=== PATIENT | female | born 1970 | race Caucasian/White ===

== ENCOUNTER 2021-05-12 12:51 | Emergency (ER) | payer SELFPAY ==
[2021-05-12 17:36] VITALS: BP 110/75; PULSE 90; RESP 18; O2SAT 99; BMI 22.9
[2021-05-12 19:59] VITALS: BP 146/87; PULSE 83; RESP 20; TEMP 37.3; O2SAT 100
--- NOTE | 2021-05-12 20:21 | XRR_ITS ---
PROCEDURE INFORMATION: Exam: XR Chest Exam date and time: 05/12/2021 8:21 PM Age: 51 years old Clinical indication: Dyspnea TECHNIQUE: Imaging protocol: XR of the chest. Views: 1 view. COMPARISON: No relevant prior studies available. FINDINGS: Lungs: Unremarkable. No consolidation. Pleural spaces: Unremarkable. No pleural effusion. No pneumothorax. Heart/Mediastinum: Unremarkable. No cardiomegaly. Bones/joints: Unremarkable. XR/XR chest 1V portable [id number] IMPRESSION: No acute findings.
--- NOTE | 2021-05-12 20:21 | ECG_ITS ---
[facility] Test Date: 2021-05-12 Pat Name: Kelly Newell Department: Room: Gender: Female Program Planner: : 1970 Requested By: Lobo Cruz Order Number: [id number] Quynh MD: Destiney Miranda M.D. Measurements Intervals [place] Rate: 66 P: 71 [place]: 152 QRS: 72 QRSD: 76 T: 72 QT: 381 QTc: 399 Interpretive Statements SINUS RHYTHM No previous ECG available for comparison Electronically Signed On 05-12-2021 22:18:32 MARKETING DEVELOPMENT SPECIALIST by Destiney Miranda M.D. [id number]
--- NOTE | 2021-05-12 20:33 | XRR_ITS ---
PROCEDURE INFORMATION: Exam: XR Left Ankle Exam date and time: 05/12/2021 8:33 PM Age: 51 years old Clinical indication: Pain; Ankle; Left; Additional info: Ankle pain TECHNIQUE: Imaging protocol: XR Left ankle. Views: 1 or 2 views. COMPARISON: No relevant prior studies available. FINDINGS: Bones/joints: Normal. Soft tissues: Normal. XR/XR ankle LT 2V [id number] IMPRESSION: No acute findings.
[2021-05-12 20:42] LABS: Basophils % 0.5 %; Eosinophils # 0.1 10^3/uL (0.0-0.8); Eosinophils % 2.2 %; Hematocrit 42.1 % (37.0-47.0); Hemoglobin 13.6 g/dL (11.5-15.3); Lymphocytes # 3.1 10^3/uL (0.8-4.8); Lymphocytes % 48.6 %; Mean Corpuscular HGB Conc 32.3 g/dL (30.0-36.0); Mean Corpuscular Hemoglobin 29.6 pg (28.0-34.0); Mean Corpuscular Volume 91.7 fl (81-99); Mean Platelet Volume 10.8 fL (7.4-10.4); Monocytes # 0.7 10^3/uL (0.2-0.9); Neutrophils # 2.38 10^3/uL (1.8-7.7); Neutrophils % 37.7 %; Nucleated Red Blood Cells % 0 %; Platelet Count 205 10^3/cmm (130-400); Red Blood Count 4.59 10^6/uL (4.1-5.3); Red Cell Distribution Width 12.5 % (12.1-15.1); White Blood Count 6.3 10^3/uL (4.0-10.0)
--- NOTE | 2021-05-12 20:55 | ED_ITS ---
HPI - General Adult General: Chief complaint: Extremity Problem,Nontraumatic Stated complaint: SORE LEG/ COUGH/ FEVER Time Seen by Provider: 05/12/21 20:01 History of Present Illness: HPI narrative: Patient is a 51-year-old female with no significant past medical history presents emergency room with complaints of left lower extremity swelling and shortness of breath x1 week. Patient tells me that she noticed her left ankle lower leg appears to be mildly swollen since a week ago. Patient was asleep when she woke up with this pain. Since then, patient has said that the pain is intermittent has not stopped. Patient also reports short onset of shortness of breath around the same time. Denies any calf swelling or thigh swelling. No history of VTE's prior. Patient says that her family numbers work in healthcare and urged her to come to the emergency room for evaluation for blood clots. Patient denies any pleuritic chest pain, recent immobilization, or surgery, OCP use, exertional chest pain or pleuritic chest pain, hemoptysis, nausea/vomiting, diarrhea, melena hematochezia. Onset:1 week ago Duration:1 week Location:home Severity:moderate Review of Systems Narrative: Constitutional: No fever, no chills. HEENT: No vision changes CV: No chest pain, no palpitations PULM: no cough, +dyspnea. GI: No abdominal pain, no N/V/D. : No dysuria MSKEL: No muscle pain, +L leg and ankle pain SKIN: No new rashes, no lesions. NEURO: No headache, no focal weakness. HEME: No visible bruises PSYCH: Normal mood Physical Exam Narrative: EXAM NARRATIVE: Head: Atraumatic Eyes: PERRL, conjunctiva without injection ENT: Mucous membrane moist NECK: Supple, ROM intact LUNGS: LCTAB, no crackles/rhonchi CV: RRR ABDOMEN: Soft, nontender in all quadrants EXTREMITY: Normal ROM, +mild L anterior lateral ankle/distal tib/fib tenderness to palpation, no aris sign, no inner thigh tenderness to palpation b/l, LLE 2+DP/PT pulses, cap refill< 2 secons in the affected extremity, strength and sensation intact in the LLE SKIN: No rash or erythema NEURO: Awake and alert, no focal motor deficits PSYCH: Normal mood and affect Course Vital Signs: Vital signs: Vital Signs Temperature 98.4 F 05/12/21 21:49 Pulse Rate 81 05/12/21 21:49 Respiratory Rate 18 05/12/21 21:49 Blood Pressure 129/88 05/12/21 21:49 Pulse Oximetry 99 05/12/21 21:49 MDM - General Adult MDM Narrative: Medical decision making narrative: 51-year-old female presents emergency room for evaluation of possible DVT with complaints of ankle pain x 1 week. On exam, patient has mild left lateral anterior ankle tenderness to palpation. Neurovascular exam intact in bilateral extremity. Patient also reports mild dyspnea x1 week. Low suspicion for DVT is low at this time. D-dimer is within normal limit. Given negative D-dimer and low suspicion, this is unlikely to be DVT at this time. Plan within normal limit. EKG is nonischemic. X-ray chest did not show any focal findings Doubt ACS/PE or other emergent causes of chest pain. No suspicion for aortic dissection given no widened mediastinum, 2+ upper extremity pulses, or tearing pain. No suspicion for PE given neg dimer AND no pleuritic chest pain, recent immobilization or surgery hemoptysis, or other VTE risk factors. Rx tylenol PRN ankle pain Disposition: Discharge. Patient counseled regarding diagnostic impression, treatment plan. Patient given ED strict return precautions to return for continuation, worsening, or development of new symptoms. Instructed to f/u w/ PCP regarding symptoms today. Patient verbalized understanding. Lab Data: Labs: Lab Results 05/12/21 05/12/21 05/12/21 20:36 20:36 20:36 WBC 6.3 10^3/uL 10^3/ uL (4.0-10.0) RBC 4.59 10^6/uL 10^6 /uL (4.1-5.3) Hgb 13.6 g/dL g/dL (11.5-15.3) Hct 42.1 % % (37.0-47.0) MCV 91.7 fl fl (81-99) MCH 29.6 pg pg (28.0-34.0) MCHC 32.3 g/dL g/dL (30.0-36.0) RDW 12.5 % % (12.1-15.1) Plt Count 205 10^3/cmm 10^3 /cmm (130-400) MPV 10.8 fL H fL (7.4-10.4) Neut % (Auto) 37.7 % % Lymph % (Auto) 48.6 % % Dewitt % (Auto) 11.0 % % Eos % (Auto) 2.2 % % Baso % (Auto) 0.5 % % Neut # (Auto) 2.38 10^3/uL 10^3 /uL (1.8-7.7) Lymph # (Auto) 3.1 10^3/uL 10^3/ uL (0.8-4.8) Dewitt # (Auto) 0.7 10^3/uL 10^3/ uL (0.2-0.9) Eos # (Auto) 0.1 10^3/uL 10^3/ uL (0.0-0.8) Baso # (Auto) 0.0 10^3/uL 10^3/ uL (0.0-0.1) Nucleated RBC % (a uto) 0 % % Nucleated RBCs # 0.0 /100WBC /100W BC D-Dimer 0.33 ug/mIFEU ug/ mIFEU (0-0.59) Sodium 140 mmol/L mmol/L (136-145) Potassium 4.2 mmol/L mmol/L (3.5-5.1) Chloride 105 mmol/L mmol/L (98-107) Carbon Dioxide 26 mmol/L mmol/L (22-29) Anion Gap 13.2 (5-19) BUN 8 mg/dL mg/dL (6-20) Creatinine 0.6 mg/dL mg/dL (0.5-0.9) GFR Calculation 105.4 mL/min mL/m in (90-130) Glucose 84 mg/dL mg/dL (65-115) Calculated Osmolal ity 288 mOsm/kg mOsm/ kg (285-295) Calcium 8.5 mg/dL mg/dL (8.5-10.5) Troponin T Baselin e 05/12/21 20:36 WBC RBC Hgb Hct MCV MCH MCHC RDW Plt Count MPV Neut % (Auto) Lymph % (Auto) Dewitt % (Auto) Eos % (Auto) Baso % (Auto) Neut # (Auto) Lymph # (Auto) Dewitt # (Auto) Eos # (Auto) Baso # (Auto) Nucleated RBC % (a uto) Nucleated RBCs # D-Dimer Sodium Potassium Chloride Carbon Dioxide Anion Gap BUN Creatinine GFR Calculation Glucose Calculated Osmolal ity Calcium Troponin T Baselin e 6 ng/L ng/L (0-10) Imaging Data^: Other Imaging: Radiologist's impression: [facility] [address] [id number] ReportSigned Patient: Kelly Newell AUnit #: [id number]: 1970Acct#:[id number]/Sex: 51 / FADM Date: 05/12/21Loc: ERRoom/Bed:Attending Dr: Ordering Provider/Ordering MD: Lobo Cruz MD Date of Service: 05/12/21 Procedure(s): XR ankle LT 2V [id number] Accession Number(s): [id number] Report Number: [id number] PROCEDURE INFORMATION: Exam: XR Left Ankle Exam date and time: 05/12/2021 8:33 PM Age: 51 years old Clinical indication: Pain; Ankle; Left; Additional info: Ankle pain TECHNIQUE: Imaging protocol: XR Left ankle. Views: 1 or 2 views. COMPARISON: No relevant prior studies available. FINDINGS: Bones/joints: Normal. Soft tissues: Normal. XR/XR ankle LT 2V [id number] IMPRESSION: No acute findings. Dictated By:Kvng Acevedo By:Kvng Acevedo Date/Time:05/12/21D/ 32 Discharge Plan Discharge Patient Disposition: Home Clinical Impression: Ankle pain, Dyspnea Condition: Stable Discharge Orders: Discharge ED (Routine); Ordered 05/12/21 Ordered By: Lobo Cruz Discharge Diet: Advance as tolerated Discharge Activity: Resume usual activity Patient Instructions: Dyspnea (ED), Leg Pain (ED) Activity Restrictions/Additional Instructions: Come back to the emergency room if your chest pain worsens, have any fever or chills, worsening shortness of breath, worsening exertional lightheadedness, or any new or concerning complaints. Coding Level of Care Code ED Housekeeper Cleaning Cooking for Maribel Guerrero
[2021-05-12 20:56] LABS: D Dimer 0.33 ug/mIFEU (0-0.59)
[2021-05-12 21:02] LABS: Anion Gap 13.2 (5-19); Blood Urea Nitrogen 8 mg/dL (6-20); Calcium 8.5 mg/dL (8.5-10.5); Carbon Dioxide 26 mmol/L (22-29); Chloride 105 mmol/L (98-107); Glomerular Filtration Rate 105.4 mL/min (90-130); Glucose 84 mg/dL (65-115); Osmolality Calculated 288 mOsm/kg (285-295); Potassium 4.2 mmol/L (3.5-5.1); Sodium 140 mmol/L (136-145)
[2021-05-12 21:49] VITALS: BP 129/88; PULSE 81; RESP 18; TEMP 36.9; O2SAT 99
[2021-05-13 00:33] LABS: Troponin(5th) Baseline 6 ng/L (0-10)
== END 2021-05-12 21:51 | disposition home or self-care (01) ==
PROVIDERS: Emergency Provider Emergency Medicine
DX: R06.00 Dyspnea, unspecified (principal); M25.572 Pain in left ankle and joints of left foot
CPT/HCPCS: 71045; 73600; 80048; 84484; 85025; 85378; 93005; 99283